=== PATIENT | female | born 1940 | race Two or more races ===

== ENCOUNTER 2018-12-04 09:15 | Outpatient (CLI) | payer OTHER | END 2018-12-04 09:19 | disposition home or self-care (01) | LOC: RX STUDY 09:15 | DX: R10.13 Epigastric pain (principal) ==

== ENCOUNTER 2024-03-06 07:15 | Outpatient (CLI) | payer OTHER | END 2024-03-06 07:20 | disposition home or self-care (01) | LOC: RX STUDY 07:15 | PROVIDERS: ATTEND Internal Medicine Gastroenterology | DX: R10.13 Epigastric pain (principal) ==